=== PATIENT | female | born 1945 | race Caucasian/White ===

== ENCOUNTER 2017-11-14 02:08 | Emergency (ER) | payer OTHER ==
[~2017-11-14] VITALS: Ht 165.1 cm; Wt 58.5 kg
[~2017-11-14 02:08] MED LIST: ASPIR 8181 MG PO; LOVASTATIN40 MG PO; METFORMIN HCL850 MG PO
[2017-11-14 02:21] VITALS: Ht 165.1 cm; Wt 58.5 kg
[2017-11-14 03:01] LABS: BASOPHIL % 0.3 % (0-2); PLATELET COUNT 258 x10^3mcL (130-400); RED CELL DISTRIBUTION WIDTH 13.2 % (11.5-14.5)
[2017-11-14 03:13] LABS: CALCIUM 8.9 mg/dL (8.5-10.1); CARBON DIOXIDE 28.1 mmol/L (21-32); CHLORIDE SERUM 107 mmol/L (98-107); CREATININE SERUM 0.7 mg/dL (0.6-1.0); GLUCOSE SERUM 148 mg/dL (74-106); POTASSIUM SERUM 3.6 mmol/L (3.5-5.1); SODIUM SERUM 146 mmol/L (136-145)
[2017-11-14 03:18] LABS: ALKALINE PHOSPHATASE 110 U/L (46-116); ALT/SGPT 194 U/L (14-59); AST/SGOT 460 U/L (15-37); BILIRUBIN TOTAL 0.79 mg/dL (0.20-1.00); LIPASE 189 IU/L (73-393); TOTAL PROTEIN, SERUM 7.4 g/dL (6.4-8.2)
[2017-11-14 03:28] LABS: ALBUMIN 3.3 g/dL (3.4-5.0)
[2017-11-14 07:24] VITALS: BP 105/63
== END 2017-11-14 05:00 | disposition home or self-care (01) ==
LOC: ED 02:08
PROVIDERS: Emergency Medicine Emergency Medical Services
DX: K29.20 Alcoholic gastritis without bleeding (principal); I10 Essential (primary) hypertension; E11.9 Type 2 diabetes mellitus without complications; E78.00 Pure hypercholesterolemia, unspecified
CPT/HCPCS: J2270; J2405